=== PATIENT | male | born 1970 | race Caucasian/White ===

== ENCOUNTER 2020-04-13 00:05 | Emergency (ER) | payer BC, SELFPAY ==
--- NOTE | ~2020-04-13 | CT_ITS ---
EXAMINATION: CT abdomen pelvis wo con DATE: 04/13/2020 00:43 INDICATION: Left-sided flank pain. Nephrolithiasis. TECHNIQUE: Computed tomography (CT) of the abdomen and pelvis was performed without intravenous contr ast. Automated exposure control and iterative reconstruction technique were employed. The dose-length product was 345.01 mGy-cm. COMPARISON: 08/01/2019 FINDINGS: Lung bases are clear. Heart size is normal. No pericardial or pleural effusion. Small sliding-type hi atal hernia. 2 cm cyst in the right hepatic lobe. Gallbladder, spleen, pancreas, bilateral adrenal gl ands are normal. 1 mm nonobstructing stone and 5 mm cyst at the lower pole of the right kidney. 2 mm stone at the left ureterovesicular junction which results in mild left hydronephrosis and small amoun t of perinephric and periureteral stranding. Additional 7 x 4 mm stone in the dependent aspect of the mildly dilated left renal pelvis. Multiple phleboliths in the pelvis. Nearly decompressed bladder ap pears normal. Normal prostate. Bowels including the appendix are normal. Small bilateral fat-containi ng inguinal hernias. No free intraperitoneal gas or fluid. No pathologically enlarged abdominal or pe lvic lymphadenopathy. Moderate degenerative skeletal changes at the bilateral hips and lower lumbar s pine. Minimal chronic anterior wedging at L2-L4. IMPRESSION: 1. Bilateral nephrolithiasis with 2 mm obstructing stone at the left ureterovesicular junction which results in mild hydronephrosis and perinephric stranding. Reviewed, dictated and finalized at location A. IMPRESSION: 1. Bilateral nephrolithiasis with 2 mm obstructing stone at the left ureteroves icular junction which results in mild hydronephrosis and perinephric stranding.
--- NOTE | 2020-04-13 00:13 | ED.ABDPAIN ---
HPI - Abdominal Pain General Chief Complaint: Abdominal Pain Stated Complaint: Passing a Kidney Stone Time Seen by Provider: 04/13/20 00:11 History of Present Illness HPI narrative: Left flank pain for about an hour. Started suddenly. Radiates to the LLQ. Associated with nausea and vomiting. Feels like previous kidney stone. No fever, dysuria, discharge. Related Data Allergies Allergy/AdvReac Type Severity Reaction Status Date / Time codeine Allergy Unknown Unknown Verified 08/01/19 11:36 Review of Systems Review of Systems: All systems reviewed & are unremarkable except as noted in HPI and below Constitutional: Constitutional: Reports chills and Reports fever(s) Cardiovascular: Cardiovascular: Denies chest pain Respiratory: Respiratory: Denies cough and Denies dyspnea Gastrointestinal: Gastrointestinal: Reports abdominal pain, Reports nausea and Reports vomiting Genitourinary: Genitourinary: Denies dysuria Neurologic: Denies dizziness and Denies weakness PMFSH Social History Social History (Updated 04/13/20 @ 06:46 by Matthew Rivera MD) Living arrangements: with family Exam Const: General: alert Nutritional Appearance: well nourished Orientation/consciousness: patient oriented x3 Other: Mild distress. HENMT: Head: normal to inspection Resp: Effort & Inspection: normal respiratory effort Auscultation: clear to auscultation bilaterally Cardio: Rate: regular rate Rhythm: regular rhythm GI: GI Palp: Yes Soft to palpation, No Tenderness to palpation present (GI), No Guarding due to palpation present (GI) and No Rebound tenderness present : General: Yes no CVA tenderness Skin: General skin exam: normal color Neuro: General: patient oriented x3 and moves all extremities Extrem: General: normal to inspection Course Vital Signs Vital signs: Vital Signs Temperature 36.7 C 04/13/20 00:22 Pulse Rate 74 04/13/20 00:22 Respiratory Rate 22 H 04/13/20 00:22 Blood Pressure 145/91 H 04/13/20 00:22 Temperature 36.7 C 04/13/20 00:22 Pulse Rate 75 04/13/20 04:53 Respiratory Rate 16 04/13/20 04:53 Blood Pressure 136/91 H 04/13/20 04:53 Pulse Oximetry 95 04/13/20 04:53 MDM - Abdominal Pain Differential Diagnosis Differential diagnosis: Likely calculus of kidney Medical Records Attestation: I reviewed the patient's medical records. Lab Data Attestation: I reviewed the patient's lab results. Result diagrams: 04/13/20 00:24 04/13/20 00:24 Labs: Lab Results 04/13/20 04/13/20 04/13/20 Range/Units 00:24 00:24 01:12 WBC 17.6 H (4.5-10.0) K/mm3 RBC 5.01 (4.6-6.20) M/mm3 Hgb 15.2 (14.0-18.0) g/dL Hct 45.7 (42.0-52.0) % MCV 91.2 (80-100) fl MCH 30.3 (26-34) pg MCHC 33.3 (32-36) g/dl RDW 13.1 (11.5-14.5) % Plt Count 220 (150-375) k/mm3 MPV 10.1 (7.4-10.4) fl Immature Gran % (Auto) 0.5 (0-0.5) % Neut % (Auto) 80.6 H (45.5-73.1) % Lymph % (Auto) 12.7 L (18.3-44.2) % Rooks % (Auto) 5.4 (2.6-8.5) % Eos % (Auto) 0.5 (0-4.4) % Baso % (Auto) 0.3 (0.2-1.2) % Lymph # (Auto) 2.24 (0.9-3.2) K/mm3 Rooks # (Auto) 0.9 H (0.1-0.6) K/mm3 Eos # (Auto) 0.1 (0-0.3) K/mm3 Baso # (Auto) 0.1 (0.0-0.1) K/mm3 Abs Immat Gran (auto) 0.09 H (0.00-0.031) K/mm3 Absolute Neuts (auto) 14.2 H (1.3-6.7) K/mm3 Absolute Nucleated RBC 0.0 (0.0-0.012) K/mm3 Nucleated RBC % 0.0 (0.0-0.2) % Sodium 140 (137-145) mmol/L Potassium 3.7 (3.4-5.0) mmol/L Chloride 106 (98-107) mmol/L Carbon Dioxide 23 (22-30) mmol/L BUN 20 (9-20) mg/dL Creatinine 1.40 H (0.7-1.3) mg/dL Estim Creat Clear Calc 63 ml/min Estimated GFR 53 L (59 - ) Glucose 160 H (75-110) mg/dL Calcium 9.4 (8.4-10.2) mg/dL Total Bilirubin 0.8 (0.2-1.3) mg/dL AST 32 (17-59) U/L ALT 31 (4-50) U/L Alkaline Phosphatase 84 (38-126) U
[2020-04-13 00:22] VITALS: BP 145/91; PULSE 74; RESP 22; TEMP 36.7
[2020-04-13] MEDS: ONDANSETRON INJ 4 MG/2 ML VIAL IV PUSH ×3 (00:27→04:03)
[2020-04-13] MEDS: SODIUM CHLORIDE 0.9% IV 1,000 ML 999 ML IV CONT (00:28)
[2020-04-13 00:41] LABS: Alanine Aminotransferase 31 U/L (4-50); Albumin Level 4.5 g/dL (3.5-5.1); Alkaline Phosphatase 84 U/L (38-126); Aspartate Amino Transferase 32 U/L (17-59); Bilirubin,Total 0.8 mg/dL (0.2-1.3); Blood Urea Nitrogen 20 mg/dL (9-20); Calcium 9.4 mg/dL (8.4-10.2); Carbon Dioxide 23 mmol/L (22-30); Chloride 106 mmol/L (98-107); Estimated CRCL calculation 63 ml/min; Estimated Glomerular Filt Rate 53; Glucose 160 mg/dL (75-110); Lipase 90 U/L (23-300); Potassium 3.7 mmol/L (3.4-5.0); Sodium 140 mmol/L (137-145)
[2020-04-13 00:47] LABS: Basophils Absolute Auto 0.1 K/mm3 (0.0-0.1); Basophils Percent Auto 0.3 % (0.2-1.2); Eosinophils Absolute Auto 0.1 K/mm3 (0-0.3); Eosinophils Percent Auto 0.5 % (0-4.4); Hematocrit 45.7 % (42.0-52.0); Hemoglobin 15.2 g/dL (14.0-18.0); Immature Granulocyte Absolute 0.09 K/mm3 (0.00-0.031); Immature Granulocyte Percent A 0.5 % (0-0.5); Lymphocytes Absolute Auto 2.24 K/mm3 (0.9-3.2); Lymphocytes Percent Auto 12.7 % (18.3-44.2); Mean Corpuscular HGB Conc 33.3 g/dl (32-36); Mean Corpuscular Hemoglobin 30.3 pg (26-34); Mean Corpuscular Volume 91.2 fl (80-100); Mean Platelet Volume 10.1 fl (7.4-10.4); Monocytes Absolute Auto 0.9 K/mm3 (0.1-0.6); Monocytes Percent Auto 5.4 % (2.6-8.5); Neutrophils Absolute Auto 14.2 K/mm3 (1.3-6.7); Neutrophils Percent Auto 80.6 % (45.5-73.1); Platelet Count Result 220 k/mm3 (150-375); Red Blood Count 5.01 M/mm3 (4.6-6.20); Red Cell Distribution Width 13.1 % (11.5-14.5); White Blood Count 17.6 K/mm3 (4.5-10.0)
[2020-04-13 00:51] VITALS: BP 138/90; PULSE 74; RESP 16; O2SAT 100
[2020-04-13 01:30] LABS: Add Urine Microscopic? YES; Appearance Urine Clear (Clear); Bilirubin Urine Negative (Negative); Blood Urine 2+ (Negative); Color Urine Yellow (Yellow); Glucose Urine UA Negative (Negative); Ketones Urine 2+ mg/dL (Negative); Leukocyte Esterase Ur Negative LEU/UL (Negative); Mucus Urine Few /lpf; Nitrate Urine Negative (Negative); Protein Urine Negative (Negative); RBC Urine >75 /hpf (0-2); Squamous Epithelial Cell Urine Rare /hpf (Few)
[2020-04-13] MEDS: HYDROMORPHONE HCL 1 MG/ML INJ 0.5 MG IV PUSH (01:30)
[2020-04-13 02:00] VITALS: BP 129/87; PULSE 87; RESP 16; O2SAT 100
--- NOTE | 2020-04-13 04:04 | PC.NURSE ---
At time of discharge, the patient c/o pain 7/10, very nauseated and vomited x 1. dr. mendez aware. vorb- zofran 4mg ivp.
[2020-04-13 04:15] VITALS: BP 143/95; RESP 18; O2SAT 95
[2020-04-13 04:53] VITALS: BP 136/91; PULSE 75; RESP 16; O2SAT 95
== END 2020-04-13 04:53 | disposition home or self-care (01) ==
PROVIDERS: Emergency Provider Emergency Medicine; PCP Family Medicine Adolescent Medicine
DX: N13.2 Hydronephrosis with renal and ureteral calculous obstruction (principal)
CPT/HCPCS: 36415; 74176; 80053; 81001; 83690; 85025; 87086; 96361; 96374; 96375; 96376; 99284; A9270; J1170; J2405; J3010; J7030

== ENCOUNTER 2020-04-26 17:02 | Outpatient (CLI) | payer BC, SELFPAY ==
--- NOTE | ~2020-04-26 | XR_ITS ---
EXAMINATION: XR abdomen/kub 1V INDICATION: Left kidney stone TECHNIQUE: Supine views of the abdomen were obtained on 2 radiographs. COMPARISON: None FINDINGS: There is a 9 mm stone of the left kidney lower pole which was previously identified in the left renal pelvis. There are phleboliths of the pelvis. A 2 mm stone seen at the left ureterovesicula r junction on CT is not definitely identified. The bowel gas pattern is normal. There is mild lumbar spondylosis. IMPRESSION: 1. 9 mm stone of the left kidney lower pole. Reviewed, dictated and finalized at location A.
--- NOTE | ~2020-04-26 | US_ITS ---
EXAMINATION: US retroperitoneal comp DATE: 04/26/2020 17:33 INDICATION: Left-sided kidney stone TECHNIQUE: Multiple grayscale and Doppler ultrasound images of the kidneys were obtained. COMPARISON: CT, 04/13/2020 FINDINGS: The right kidney measures 11.1 x 4.6 x 5.7 cm. The left kidney measures 11.1 x 5.5 x 4.3 cm . There is a 9 mm stone in the lower pole of the left kidney. The kidneys demonstrate normal parenchy mal echogenicity. There is no hydronephrosis. The bladder is normal. IMPRESSION: 1. 9 mm stone of the left kidney lower pole. No hydronephrosis or hydroureter. Reviewed, dictated and finalized at location A.
== END 2020-04-26 17:03 | disposition home or self-care (01) ==
PROVIDERS: PCP Family Medicine Adolescent Medicine; Visit Provider Urology
DX: N20.0 Calculus of kidney (principal)
CPT/HCPCS: 74018; 76770

== ENCOUNTER → 2020-08-03 15:26 | Outpatient (CLI) | payer BC, SELFPAY ==
--- NOTE | ~2020-08-03 | XR_ITS ---
XR foot RT min 3V DATE: 08/03/2020 15:52 INDICATION: Right foot pain at fourth and fifth metatarsal region TECHNIQUE: 4 views COMPARISON: None FINDINGS: Plantar and posterior calcaneal enthesopathy. No fracture, dislocation, periosteal reaction or bone destruction is detected. IMPRESSION: Plantar and posterior calcaneal enthesopathy Reviewed, dictated and finalized at location B.
== END ==
PROVIDERS: PCP Family Medicine Adolescent Medicine; Visit Provider Family Medicine Adolescent Medicine
DX: M77.31 Calcaneal spur, right foot (principal)
CPT/HCPCS: 73630

== ENCOUNTER 2020-08-24 14:11 | Outpatient (CLI) | payer BC, SELFPAY ==
[2020-08-24 14:40] LABS: Partial Thromboplastin Time 24.7 SECONDS (22.3-36.8); Prothrombin Time 12.6 Seconds (11.1-14.7)
== END 2020-08-24 14:12 | disposition home or self-care (01) ==
PROVIDERS: PCP Family Medicine Adolescent Medicine; Visit Provider Urology
DX: N20.0 Calculus of kidney (principal)
CPT/HCPCS: 36415; 85610; 85730; 87086

== ENCOUNTER 2020-08-29 01:39 | Outpatient (CLI) | payer BC, SELFPAY ==
[2020-08-29 18:17] LABS: SARS-CoV-2 RNA PCR Positive
== END 2020-08-29 01:40 | disposition home or self-care (01) ==
LOC: ANHCOVIDDT 01:40
PROVIDERS: PCP Family Medicine Adolescent Medicine; Visit Provider Urology
DX: Z01.812 Encounter for preprocedural laboratory examination (principal); U07.1 COVID-19
CPT/HCPCS: 87635; C9803; U0003

== ENCOUNTER 2020-10-09 00:55 | Outpatient (CLI) | payer BC, SELFPAY ==
[2020-10-09 18:51] LABS: SARS-CoV-2 RNA PCR Negative
== END 2020-10-09 00:56 | disposition home or self-care (01) ==
LOC: ANHCOVIDDT 00:55
PROVIDERS: PCP Family Medicine Adolescent Medicine; Visit Provider Urology
DX: Z01.812 Encounter for preprocedural laboratory examination (principal); Z20.828 Contact with and (suspected) exposure to other viral communicable diseases
CPT/HCPCS: 87635; C9803; U0003

== ENCOUNTER → 2020-10-11 11:46 | Outpatient (CLI) | payer BC, SELFPAY ==
--- NOTE | ~2020-10-11 | XR_ITS ---
EXAMINATION: XR abdomen/kub 1V INDICATION: Left nephrolithiasis TECHNIQUE: Supine views of the abdomen were obtained on 2 radiographs. COMPARISON: 04/26/2020 FINDINGS: There is a stable 9 mm stone of the left kidney lower pole. No additional urolithiasis is i dentified. There are multiple phleboliths of the pelvis. The bowel gas pattern is normal. There is mi ld lumbar spondylosis. IMPRESSION: 1. Stable left nephrolithiasis. Reviewed, dictated and finalized at location A. [employer]
== END ==
PROVIDERS: PCP Family Medicine Adolescent Medicine; Visit Provider Urology
DX: N20.0 Calculus of kidney (principal); M47.816 Spondylosis without myelopathy or radiculopathy, lumbar region
CPT/HCPCS: 74018

== ENCOUNTER 2020-10-12 00:32 | Day surgery (SDC) | payer BC, SELFPAY ==
[2020-08-22 09:56] VITALS: BMI 28.3
--- NOTE | 2020-10-08 15:45 | SUR.PREOP ---
Addendum entered by Paris Condon RN 10/10/20 11:02: 10/10/20 @1050. Unable to reach pt by phone, left voice mail with new arrival time, surgery time and PO intake limitations/instructions. Instructed to call back if any questions and if any change in health status or meds since last interview. Confirmed with Alvarez at Dr. Palm office that pt came to office 10/09 for urine culture. Original Note: per patient not wanting to come in for labs until after Covid testing this RN called spoke to Maxine to advise patient to come to office in am for urine culture per Maxine she would call patient to arrange all other labs will be done day of surgery
--- NOTE | 2020-10-12 07:07 | WPDHPUPDATE1 ---
History and Physical Update Update Date/Time: 10/12/20 07:07 History and Physical has been reviewed, including an updated exam of the patient. There are NO changes in the patient's condition. Risks, benefits, and alternatives have been discussed and questions answered. Patient agrees to proceed with procedure. Proceed with left renal eswl
--- NOTE | 2020-10-12 07:39 | SUR.PREOP ---
0730; PT CALLED, STATES HE HAD AN ABDOMINAL XRAY YESTERDAY. CALLED DR MONTILLA, HE STATES NO KUB NEEDED TODAY, CALLED FOR XRAY FILMS
[2020-10-12] MEDS: LACTATED RINGERS 1,000 ML 30 ML IV CONT (08:14)
[2020-10-12 08:16] VITALS: BP 146/79; PULSE 73; RESP 18; TEMP 36.5; O2SAT 100; BMI 28.0
[2020-10-12 08:36] LABS: INR 0.9; Partial Thromboplastin Time 25.1 SECONDS (22.3-36.8); Prothrombin Time 12.4 Seconds (11.1-14.7)
--- NOTE | 2020-10-12 09:19 | P.PNAN_ITS ---
Anes - Initial Pre Proc Eval Procedure: Operation Date: 10/12/20 09:30 Proposed Procedures p Left Renal Extracorporeal Shock Wave Lithotripsy - Mathew Palm MD Date/Time: 10/12/20 09:19 Surgeon: Mathew Palm MD Pre Op Diagnosis: Left Renal Stone Patient Data Age: 49 Gender: M Height: 1.85 m Weight: 96.6 kg Last Vital Signs Temp 36.5 C 10/12/20 08:16 Pulse 73 10/12/20 08:16 Resp 18 10/12/20 08:16 BP 146/79 H 10/12/20 08:16 Pulse Ox 100 10/12/20 08:16 Allergies Allergy/AdvReac Type Severity Reaction Status Date / Time codeine AdvReac Unknown Nausea Verified 10/12/20 07:40 Home Medications Medication Instructions Recorded Confirmed Type diclofenac sodium 75 mg PO DAILY 08/23/20 10/12/20 History terbinafine HCl 250 mg PO DAILY 08/23/20 10/12/20 History Laboratory Tests 10/12/20 08:13 PT 12.4 Seconds Seconds (11.1-14.7) INR 0.9 APTT 25.1 SECONDS SECONDS (22.3-36.8) Patient hx anesthesia problems: none Family hx anesthesia problems: none [facility] Past Medical History Medical History (Updated 08/21/20 @ 16:56 by Bj Mcdowell MD) Acquired bilateral pes cavus Peroneal tendinitis of right lower extremity Traumatic arthritis of left ankle Vision loss Social History Social History Smoking status: Never smoker Alcohol intake: current Substance use: unknown Gender identity (if verbalized by the patient): Male Spiritual care concerns: No Anes - Eval Final PreProcedure Day of Procedure 10/12/20 09:19 Patient weight: overweight Heart: regular rate and rhythm Lungs: clear to auscultation and normal air movement Airway: Mallampati scale class II Neurological: alert and oriented Last oral intake: >/= 8 hours ASA classification: II Emergent: no Anesthetic plan: proceed Anesthesia type and monitoring: general LMA Informed Consent: The patient's anesthetic plan and its attendant risks and benefits were discussed with the patient/family/POA. Questions were solicited and answers provided to the satisfaction of the patient/family/POA.
[2020-10-12 10:32] VITALS: BP 109/60; PULSE 78; RESP 16; TEMP 36.4; O2SAT 100
--- NOTE | 2020-10-12 10:32 | PM.PROC ---
Procedure Note - Detailed Date of procedure: 10/12/20 Pre-op diagnosis: Left Renal Stone Post-op diagnosis: same Procedure performed: ESWL left renal calculus 9 mm Description of procedure: patient is taken to the operative suite and correctly identified. Once anesthesia was obtained stone was localized in both planes. Two thousand five hundred shocks were given to the stone. Patient tolerated the procedure well without any complications and taken recovery room stable condition. He will follow up for about 10 days with a KUB. Anesthesia: GLMA Surgeon: Mathew Palm MD Drains: No Packing: No Pathology: none sent Complications: No immediate complications Condition: stable Disposition: PACU
[2020-10-12 10:45] VITALS: BP 119/76; PULSE 74; RESP 14; O2SAT 99
[2020-10-12 11:00] VITALS: BP 121/90; PULSE 73; RESP 13; O2SAT 99
[2020-10-12 11:15] VITALS: BP 146/84; PULSE 74; RESP 13
[2020-10-12 11:45] VITALS: BP 146/84; PULSE 72; RESP 16
[2020-10-12] MEDS: oxyCODONE HCL (*CRX) 5 MG TAB IR PO (11:57)
--- NOTE | 2020-10-12 13:29 | SUR.PHASEII ---
SURGEON'S OFFICE CALLED TO REQUEST AN ANTI-EMETIC PER PT REQUEST.
== END 2020-10-12 12:15 | disposition home or self-care (01) ==
PROVIDERS: PCP Family Medicine Adolescent Medicine; Visit Provider Urology
PROC: (CPT 50590; principal; 2020-10-12 09:30)
DX: N20.0 Calculus of kidney (principal)
CPT/HCPCS: 50590; 36415; 85610; 85730; A9270; J1100; J2250; J2405; J2704; J3010; J7120

== ENCOUNTER 2025-07-15 12:30 | Emergency (ER) | payer BC, SELFPAY ==
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
[2025-07-15 12:31] VITALS: BP 132/84; PULSE 84; RESP 16; TEMP 36.8; O2SAT 98
--- OUTSIDE RECORDS SUMMARY | 2025-07-15 12:35 | XMS_ITS | Encounter Summary ---
Author Organization [facility] Address [address] [place] [address] Care Team Providers Care Family Resource Coordinator Name Role Phone Flavia Roger NP Primary Care Provider [phone] Encounter Details Date Type Department Care Team (Late Contact Info) Description 06/06/2021 [employer] Message Enc [facility] [address] [place] [address] [place] [phone] Flavia Roger NP [address] [place] [address] [id number] RE: Test Results Social History Tobacco Use Types Packs/Day Years Used Date Smoking Tobacco: Never Smokeless Tobacco: Never Alcohol Use Standard Drinks/Week Comments Yes 0 (1 standard drink = 0.6 oz pur e alcohol) PHQ-2 Answer Date Recorded PHQ-2 Score - If the patient scores above 3, please move on to questions 3-9 0 11/22/2020 Sex and Gender Information Value Date Recorded Sex Assigned at Not on file Legal Sex Male 5:54 PM CDT Gender Identity Not on file Sexual Orientation Not on file COVID-19 Exposure Response Date Recorded In the last month, have you been in contact with someone who was confirmed or suspected to have Coronavirus / COVID-19? No / Unsure 06/04/2021 3:38 PM CDT documented as of this encounter Plan of Treatment Upcoming Encounters Date Type Department Care Team (Late Contact Info) Description 08/02/2025 2:20 PM CDT Office Visit [facility] [address] [facility] [address] [place] [phone] Flavia Roger NP [address] [place] [address] 09/19/2025 1:20 PM SED [employer] Office Visit [facility] - [place] [address] [facility] [address] [place] [address] Flavia Roger NP [address] [place] [address] documented as of this encounter Visit Diagnoses Not on filedocumented in this encounter Additional Health Concerns Assessment Noted Time PHQ-9 Depression Total Score: 2 11/22/19 3:40 PM [employer] documented as of this encounter Care Teams Family Resource Coordinator Relationship Specialty Start Date End Date Flavia Roger NP [address] [place] [address] PCP - General NURSE PRACTITIONER 05/24/21 documented as of this encounter
--- OUTSIDE RECORDS SUMMARY | 2025-07-15 12:35 | XMS_ITS | Clinical Summary ---
Author Organization [facility] [employer] Address [address] [place] [address] Care Team Providers Care Bulk Sausage Casing Tier Off Name Role Phone Flavia Roger APRNCOTTON FEEDER Primary Care Provi tiffanie Source Comments [facility],non-owned Affiliates and Associated Physician Practices is amultiple site organization consisting of ambulatory clinics and hospital sitesin [place], [place], [place] and [place]. This disclosure is being madepursuant to the Care Everywhere program and may not contain all information available regarding this patient. Last updated 18.[facility] [employer] Allergies Active Allergy Reactions Criticality Noted Date Comments Codeine Nausea and/or Vomiting Medium 11/22/2020 Medications * Be aware that medications may not be up to date on this document. Alwaysverify current medications with the patient. polyethylene glycol 3350 (Miralax) 17 GM/SCOOP powder Take 17 (seventeen) g by mouth once daily 238 g 2 Active Additional Information Patient taking differently:17 g OralDAILY PRN, Reported on 09/12/2022 oxyCODONE, immediate release, (Roxicodone) 5 MG tablet Take 1 (one) tablet by mouth every 6 hours as needed for Pain 30 tablet 2 Active senna (Senokot) 8.6 MG tablet Take 1 (one) tablet by mouth once daily 14 tablet 2 Active acetaminophen (Tylenol) 500 MG tablet Take 2 (two) tablets by mouth every 8 hours Maximum allowable Acetaminophen amount = 4 Grams (4000 mg) / 24 hours. 30 tablet 2 Active ondansetron, disintegrating , (Zofran ODT) 4 MG tablet Take 1 (one) tablet by mouth every 6 hours as needed for Nausea/Vomiting (take with pain medications for nausea) Allow tablet to dissolve on the tongue 20 tablet 2 Active Active Problems Problem Noted Date Diagnosed Date Acute pain of left shoulder 04/16/2022 Fatigue 06/04/2021 Hyperlipidemia 06/04/2021 Primary osteoarthritis of both knees 11/22/2020 Genu varum of both lower extremities 11/22/2020 Acute post-operative pain Immunizations Immunization Administration Dates Next Due TDAP (7yrs+) 05/13/2021 Social History Tobacco Use Types Packs/Day Years Used Date Smoking Tobacco: Never Smokeless Tobacco: Never Tobacco Cessation:Counseling Given: Not Answered Alcohol Use Standard Drinks/Week Comments Yes 0 (1 standard drink = 0.6 oz pur e alcohol) AUDIT-C Answer Date Recorded Q1: How often do you have a drink containing alc ohol? Monthly or less 06/24/2022 Q2: How many drinks containi ng alcohol do you have on a typical day when you are drinking? 1 or 2 06/24/2022 Q3: How often do you have si x or more drinks on one occasion? Less than monthly 06/24/2022 Sex and Gender Information Value Date Recorded Sex Assigned at Not on file Legal Sex Male 5:36 AM AFFILIATE MANAGER Gender Identity Not on file Sexual Orientation Not on file Last Filed Vital Signs Vital Sign Reading Time Taken Comments Blood Pressure 115/60 06/24/2022 4:30 PM CDT Pulse 70 06/24/2022 4:30 PM CDT Temperature 36.4 C (97.5 F) 06/24/2022 4:30 PM CDT Respiratory Rate 18 06/24/2022 4:30 PM CDT Oxygen Saturation 96% 06/24/2022 4:20 PM CDT Inhaled Oxygen Concentration - - Weight 96.6 kg (213 lb) 09/12/2022 2:09 PM AFFILIATE MANAGER Height 185.4 cm (6' 1) 09/12/2022 2:09 PM AFFILIATE MANAGER Body Mass Index 28.1 09/12/2022 2:09 PM AFFILIATE MANAGER Plan of Treatment Health Maintenance Due Date Last Done Comments COLOGUARD (AGES 45-75) - COL ON CA SCREENING 1968 COLON MONITORING 1968 COLONOSCOPY - COLON CA SCREENING 1968 CT COLONOGRAPHY - COLON CA SCREENING 1968 Colorectal Cancer Screening 1968 FIT - COLON CA SCREENING 1968 FLEX SIG - COLON CA SCREENING 1968 HIV SCREENING 1983 HEPATITIS B VACCINE (1 of 3 - 19+ 3-dose series) 1987 PNEUMOCOCCAL VACCINE 50+ (1 of 1 - PCV) 2018 ZOSTER VACCINE (1 of 2) 2018 SCREENING FOR DIABETES 05/06/2022 DEPRESSION SCREENING 11/02/2024 COVID-19 VACCINE (1 - 2023-2 5 season) 2025 INFLUENZA VACCINE (#1) 2025 LIPID TESTING 05/21/2026 05/21/2021 DTAP/TDAP/TD VACCINES (2 - T d or Tdap) 05/13/2031 05/13/2021 HEPATITIS C SCREENING Completed 05/21/2021 HIB VACCINE Aged Out No longer eligi ble based on patient's age to complete this topic HPV VACCINE Aged Out No longer eligi ble based on patient's age to complete this topic MENINGOCOCCAL (Group B) VACC INE SHARED DECISION-MAKING Aged Out No longer eligibl e based on patient's age to complete this topic MENINGOCOCCAL GROUPS A/C/Y/W VACCINE Aged Out No longer eligible b ased on patient's age to complete this topic Medical Devices Implanted Type Area Material Handler Device Identifier Shelf Expiration Date Model / Serial / Lot [place] Sut Swivelpako C Fibertak Tgtl Implanted:Qty: 1 on 06/24/2022 by Leonor Lazcano MD at [facility] Left: Shoulder [employer] 05/01/2024 AR-[id number] -2 / / [id number] [place] Sut Swivelock Tenodesis 8mm Bcmps Implanted:Qty: 1 on 06/24/2022 by Leonor Lzacano MD at [facility] Left: Shoulder [employer] 09/01/2025 AR-[id number] -8 / / [id number] Speedbridge Implant System With Scorpion Multifire Needle Implanted:Qty: 1 on 06/24/2022 by Leonor Lazcano MD at [facility] Left: Shoulder 08/01/2023 AR-[id number] -9 / / [id number] Biocomposite Swivel Implant System 4.75 X 19.1 Mm Implanted:Qty: 1 on 06/24/2022 by Leonor Lazcano MD at [facility] Left: Shoulder 08/01/2023 AR-2324BCC S / / [id number] Insurance [employer] GENERIC Care Teams Bulk Sausage Casing Tier Off Relationship Specialty Start Date End Date Flavia Roger APRN-KAREN [address] [place] [address] PCP - General 04/29/22
--- OUTSIDE RECORDS SUMMARY | 2025-07-15 12:35 | XMS_ITS | Clinical Summary ---
Author Organization [facility] Address [facility] [place] [address] Care Team Providers Care Engineering Department Chair Name Role Phone Flavia Roger NP Primary Care Provider [phone] Allergies Active Allergy Reactions Criticality Noted Date Comments Codeine Nausea Only Medium 11/22/2020 Medications No known medications Active Problems Problem Noted Date Diagnosed Date Acute pain of left shoulder 04/16/2022 Fatigue, unspecified type 06/04/2021 Hyperlipidemia, unspecified hyperlipidemia type 06/04/2021 Primary osteoarthritis of both knees 11/22/2020 Genu varum of both lower extremities 11/22/2020 Immunizations Immunization Administration Dates Next Due Tdap (Adacel) 05/13/2021 Family History Medical History Relation Comments Seizures Father No Known Problems Mother Relation Status Comments Father Mother Social History Tobacco Use Types Packs/Day Years Used Date Smoking Tobacco: Never Passive Smoke Exposure: Never Smokeless Tobacco: Never Tobacco Cessation:Counseling Given: No Alcohol Use Standard Drinks/Week Comments Yes 0 (1 standard drink = 0.6 oz pur e alcohol) PHQ-2 Answer Date Recorded Patient Health Questionnaire-2 Score 0 03/24/2024 Sex and Gender Information Value Date Recorded Sex Assigned at Not on file Legal Sex Male 5:54 PM CDT Gender Identity Not on file Sexual Orientation Not on file Last Filed Vital Signs Vital Sign Reading Time Taken Comments Blood Pressure 126/81 03/24/2024 9:37 AM CDT Pulse 67 03/24/2024 9:37 AM CDT Temperature 36.6 C (97.9 F) 03/24/2024 9:37 AM CDT Respiratory Rate 16 03/24/2024 9:37 AM CDT Oxygen Saturation 98% 03/24/2024 9:37 AM CDT Inhaled Oxygen Concentration - - Weight 100.2 kg (221 lb) 03/24/2024 9:37 AM CDT Height 185.4 cm (6' 1) 03/24/2024 9:37 AM CDT Body Mass Index 29.16 03/24/2024 9:37 AM CDT Plan of Treatment Upcoming Encounters Date Type Department Care Team (Late st Contact Info) Description 08/02/2025 2:20 PM CDT Office Visit [facility] [address] [facility] [address] [place] [address] Flavia Roger NP [address] [facility] [address] [place] [address] 09/19/2025 1:20 PM HEALTH CLUB ATTENDANT Office Visit [facility] [address] [facility] [address] [place] [address] Flavia Roger NP [address] [facility] [address] [place] [address] Health Maintenance Due Date Last Done Comments Kidney Health Evaluation 1968 Diabetes: Retinopathy Eye Exam 1986 Hepatitis B Vaccines (1 of 3 - 19+ 3-dose series) 1987 Pneumococcal Vaccine: 50+ Years (1 of 2 - PCV) 1987 Zoster Vaccines (1 of 2) 2018 PHQ-2 (Physician [place]) 11/02/2024 03/24/2024 Hemoglobin A1C 01/11/2025 07/14/2024, 06/04/2021 Annual Physical 03/24/2025 03/24/2024, 05/13/2021 COVID-19 Vaccine (1 - 2023-2 5 season) 2025 Lipid Panel 07/14/2025 07/14/2024, 05/21/2021 Colorectal Cancer Screening FIT-DNA (3 Years) 05/11/2027 05/11/2024, 05/11/2024, 06/05/2021 DTaP, Tdap and Td Vaccines ( 2 - Td or Tdap) 05/13/2031 05/13/2021 Hepatitis C Completed 05/21/2021 Meningococcal B Vaccine Aged Out No l onger eligible based on patient's age to complete this topic Meningococcal Vaccine Aged Out No sharee jake eligible based on patient's age to complete this topic RSV Immunizations Under 20 Months Aged Out No longer eligible b ased on patient's age to complete this topic Procedures Procedure Name Priority Date/Time Associated Diagnosis Comments LIPID PANEL Routine 07/14/2024 8:54 AM CDT Annual physical exam Screening for endocrine, metabolic and immunity disorder Screening for thyroid disorder Screening for hyperlipidemia HEMOGLOBIN, GLYCOSYLATED Routine 07/14/2024 8:54 AM CDT Type 2 diabetes mellitus without complication, with long-term current use of insulin COLOGUARD (EXACT SCIENCE) Routine 05/11/2024 8:05 AM CDT Screen for colon cancer HEPATITIS C ANTIBODY W/RFX TO HCV RNA Routine 05/21/2021 8:35 AM CDT from Last 3 Months or Most Recently Relevant to Health Maintenance Results * (ABNORMAL) HEMOGLOBIN, GLYCOSYLATED (07/14/2024 8:54 AM CDT) [facility] HGB A1C 5.4 4.5 - 6.2 % 07/15/2024 4:55 PM CDT [facility] ESTIMATED AVG GLUCOSE 108(H) 74 - 106 MG/DL 07/15/2024 4:55 PM CDT [facility] 07/14/2024 8:54 AM CDT us Flavia Roger NP LABORATORY Final Res ult [facility] [address] [place] [address], * (ABNORMAL) LIPID PANEL (07/14/2024 8:54 AM CDT) CHOLESTEROL 216(H) <200 MG/DL 07/14/2024 3:09 PM CDT [facility] TRIGLYCERIDES 62 <150 MG/DL 07/14/2024 3:09 PM CDT [facility] HDL 57 >40 MG/DL 07/14/2024 3:09 PM CDT [facility] LDL-C 147(H) <100 MG/DL 07/14/2024 3:09 PM CDT [facility] VLDL CALCULATION 12 5 - 28 MG/DL 07/14/2024 3:09 PM CDT [facility] CHOL/HDL RATIO 3.8 0.0 - 4.0 07/14/2024 3:09 PM CDT [facility] LDL/HDL 2.6(H) 0.41 - 2.13 07/14/2024 3:09 PM CDT [facility] NON HDL CHOLESTEROL 159(H) <140 MG/DL 07/14/2024 3:09 PM CDT [facility] 07/14/2024 8:54 AM CDT Flavia Roger NP LABORATORY Final Res ult [facility] [address] [place] [address], * COLOGUARD (EXACT SCIENCE) (05/11/2024 8:05 AM CDT) COLOGUARD RESULT Negative Negative [employer] (CLIA #:[id number]) Comment: NEGATIVE TEST RESULT. A negative Cologuard result indicates a low likelihood that a colorectal cancer (CRC) or advanced adenoma (adenomatous polyps with more advanced pre-malignant features) is present. The chance that a person with a negative Cologuard test has a colorectal cancer is less than 1 in 1500 (negative predictive value >99.9%) or has an advanced adenoma is less than 5.3% (negative predictive value 94.7%). These data are based on a prospective cross-sectional study of 10,000 individuals at average risk for colorectal cancer who were screened with both Cologuard and colonoscopy. (Nico Castillo, N Engl J Med 2014;370(14):1967-7906) The normal value (reference range) for this assay is negative. COLOGUARD RE-SCREENING RECOMMENDATION: Periodic colorectal cancer screening is an important part of preventive healthcare for asymptomatic individuals at average risk for colorectal cancer. Following a negative Cologuard result, the [place] [employer] Society and U.S. Multi-Society Task Force screening guidelines recommend a Cologuard re-screening interval of 3 years. References: [place] [employer] Guideline for Colorectal Cancer Screening: https://www.cancer.org/cancer/rvxob-oadhlw-lzgidv/mmnyffqlq-ghfgpuvcw-vdtzvbi/ac s-rec ommendations.html.; John DK, Tiffany MCCALLUM, Shivam MarieeK, Colorectal Cancer Screening: Recommendations for Physicians and Patients from the U.S. Multi-Society Task Force on Colorectal Cancer Screening , Am J Gastroenterology 2017; 112:7407-5131. TEST DESCRIPTION: Composite algorithmic analysis of stool DNA-biomarkers with hemoglobin immunoassay. Quantitative values of individual biomarkers are not reportable and are not associated with individual biomarker result reference ranges. Cologuard is intended for colorectal cancer screening of adults of either sex, 45 years or older, who are at average-risk for colorectal cancer (CRC). Cologuard has been approved for use by the U.S. FDA. The performance of Cologuard was established in a cross sectional study of average-risk adults aged 50-84. Cologuard performance in patients ages 45 to 49 years was estimated by sub-group analysis of near-age groups. Colonoscopies performed for a positive result may find as the most clinically significant lesion: colorectal cancer [4.0%], advanced adenoma (including sessile serrated polyps greater than or equal to 1cm diameter) [20%] or non- advanced adenoma [31%]; or no colorectal neoplasia [45%]. These estimates are derived from a prospective cross-sectional screening study of 10,000 individuals at average risk for colorectal cancer who were screened with both Cologuard and colonoscopy. (Nico Rees al, N Engl J Med 2014;370(14):4867-9715.) Cologuard may produce a false negative or false positive result (no colorectal cancer or precancerous polyp present at colonoscopy follow up). A negative Cologuard test result does not guarantee the absence of CRC or advanced adenoma (pre-cancer). The current Cologuard screening interval is every 3 years. ([place] [employer] and U.S. Multi-Society Task Force). Cologuard performance data in a 10,000 patient pivotal study using colonoscopy as the reference method can be accessed at the following location: www.[employer].Xola/results. Additional description of the Cologuard test process, warnings and precautions can be found at www.[employer].com. STOOL STOOL SPECIMEN / Unknown 05/11/2024 8:05 AM CDT 05/12/2024 2:30 PM CDT Flavia Roger CERTIFIED NUTRITIONIST BODY FLUIDS AND STOOLS OR DERABLES Final Result [employer], [facility] [address] [place] [address], [employer] (CLIA #:[id number]) [address] [place] [address] * HEPATITIS C ANTIBODY W/RFX TO HCV RNA (05/21/2021 8:35 AM CDT) HEPATITIS C AB NON-REACTI VE NON-REACT SHEFALI [facility] SIGNAL TO CUTOFF 0.01 <[address] [facility] Comment: HCV antibody was non-reactive. There is no laboratory evidence of HCV infection. In most cases, no further action is required. However, if recent HCV exposure is suspected, a test for HCV RNA (test code 93308) is suggested. For additional information please refer to http://education.[employer].Xola/faq/SLP08t2 (This link is being provided for informational/ educational purposes only.) 05/21/2021 8:35 AM CDT 05/21/2021 8:36 AM CDT Narrative [facility] - 05/24/2021 11:02 AM CDT FASTING:YES FASTING: YES Flavia Roger CERTIFIED NUTRITIONIST LABORATORY Final Res ult [facility] [address] [place] [id number] from Last 3 Months or Most Recently Relevant to Health Maintenance Insurance [facility] Care Teams Engineering Department Chair Relationship Specialty Start Date End Date Flavia Roger NP [address] [place] [address] PCP - General NURSE PRACTITIONER 05/24/21
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
[2025-07-15 17:03] VITALS: BP 128/72; PULSE 80; RESP 16; TEMP 36.6; O2SAT 97
== END 2025-07-15 17:14 | disposition home or self-care (01) ==
PROVIDERS: Emergency Provider Physician Assistant; PCP Nurse Practitioner
DX: S16.1XXA Strain of muscle, fascia and tendon at neck level, initial encounter (principal); S56.911A Strain of unspecified muscles, fascia and tendons at forearm level, right arm, initial encounter; S39.012A Strain of muscle, fascia and tendon of lower back, initial encounter; X50.0XXA Overexertion from strenuous movement or load, initial encounter
CPT/HCPCS: 72125; 72128; 72131; 73080; 99284; A9270; L0140